=== PATIENT | male | born 1955 | race Caucasian/White ===

== ENCOUNTER → 2016-11-09 | Outpatient (CLI) | payer BC, OTHER ==
[2016-11-09 11:53] LABS: BASOPHILS # (AUTO) 0.05 10*3/UL; BASOPHILS % (AUTO) 0.6 % (0-1); EOSINOPHILS # (AUTO) 0.18 10*3/UL; EOSINOPHILS % (AUTO) 2.2 % (0-8); HEMATOCRIT 50.7 % (42.0-52.0); HEMOGLOBIN 16.7 g/dL (14.0-18.0); LYMPHOCYTES # (AUTO) 2.24 10*3/uL; MEAN CORPUSCULAR HEMOGLOBIN 29.3 PG (27-31); MEAN CORPUSCULAR HGB CONC 32.9 g/dL (33-37); MEAN CORPUSCULAR VOLUME 88.9 FL (80-90); MONOCYTES # (AUTO) 0.97 10*3/UL (0.3-0.8); MONOCYTES % (AUTO) 12.1 % (5-15); NEUTROPHILS # (AUTO) 4.57 10*3/UL
[2016-11-09 12:12] LABS: BLOOD UREA NITROGEN 22 mg/dL (7-22); CALCIUM 9.3 mg/dL (8.7-10.7); CHOL/HDL RATIO 3.67 RATIO (0-4.0); EST GLOMERULAR FILTRATION > 60 (>60 ml/min/1.73m(2)); HDL CHOLESTEROL 43 mg/dL (40-150); SERUM ALBUMIN 3.9 g/dL (3.5-4.8); SERUM CHOLESTEROL 158 mg/dL (120-200)
[2016-11-09 12:16] LABS: PLATELET MORPHOLOGY COMMENT NORMAL MORPHOLOGY (NORM); RBC MORPHOLOGY COMMENT NORMAL MORPHOLOGY (NORM); WBC MORPHOLOGY COMMENT NORMAL MORPHOLOGY (NORM)
== END ==
LOC: MOB LAB 10:54
PROVIDERS: ATTEND Family Medicine
DX: Z00.00 Encounter for general adult medical examination without abnormal findings (principal); Z12.5 Encounter for screening for malignant neoplasm of prostate
CPT/HCPCS: 36415; 80053; 80061; 82306; 84443; 85025; G0103

== ENCOUNTER 2018-09-06 05:55 | Inpatient (IN) ==
[2018-09-06] MEDS ORDERED: Tranexamic Acid 1,000 MG in Sodium Chloride 0.9% 100 ML IV SCH (06:00)
[2018-09-06] MEDS ORDERED: Ketorolac Inj 30 MG, Morphine Inj (Ortho Cocktail) 5 MG, BUPivacaine Inj 0.25% PF 150 MG SPLASH ONE ×3 (06:00)
[2018-09-06] MEDS ORDERED: Lactated Ringers 1,000 ML PRIMARY IV SCH (06:00)
[2018-09-06] MEDS ORDERED: BUPivacaine Liposome/PF (Exparel) Inj 20ml vial INFIL ONE ×2 (06:00→07:47)
[2018-09-06] MEDS ORDERED: Nasal Sanitizer POPSWAB ampule 3 AMP (Nozin) PREOP DOSE ENOS SCH (06:00)
[2018-09-06] MEDS ORDERED: ceFAZolin Inj 2gm (Premix) 2 GM/50 ML BAG IV ONE ×2 (06:00→06:03)
[2018-09-06] MEDS ORDERED: LIDOCAINE W/ SODIUM BICARB 0.5 ML SYR SUBD ONE (06:00)
[2018-09-06] MEDS ORDERED: LIDOCAINE W/ SODIUM BICARB 0.5 ML SYR ONE (06:04)
[2018-09-06] MEDS ORDERED: Lactated Ringers 1,000 ML PRIMARY IV ONE ×4 (06:04→10:33)
[2018-09-06 06:23] LABS: BILIRUBIN,URINE NEGATIVE (NEG); CLARITY,URINE CLEAR (CLEAR); COLOR,URINE YELLOW (Y); GLUCOSE, URINE (UA) NEGATIVE (NEG); OCCULT BLOOD,URINE NEGATIVE (NEG); PH,URINE 5.5 (5.0-8.5); PROTEIN,URINE NEGATIVE (NEG); UROBILINOGEN,URINE 0.2 EU/dL (0.2)
[2018-09-06 06:26] LABS: URINE SAMPLE TYPE CLEAN CATCH URINE
[2018-09-06] MEDS ORDERED: fentaNYL Inj 100 MCG/2 ML VIAL ONE ×2 (07:05→07:46)
[2018-09-06] MEDS ORDERED: MORPHINE SULFATE/PF 10 MG/10 ML AMPULE ONE (07:06)
[2018-09-06] MEDS ORDERED: MIDAZOLAM HCL 2 MG/2 ML VIAL ONE (07:06)
[2018-09-06] MEDS ORDERED: PROPOFOL 10 MG/1 ML (200 MG/20 ML) VIAL IV ONE (07:09)
[2018-09-06] MEDS ORDERED: Sodium Chloride 0.9% 500 ML ONE (07:19)
[2018-09-06] MEDS ORDERED: Sodium Chloride 0.9% 2,000 ML PRIMARY IV ONE (07:19)
[2018-09-06] MEDS ORDERED: LIDOCAINE HCL 2 % 10 ML JELLY URO-JECT TOPICAL ONE (07:23)
[2018-09-06] MEDS ORDERED: Gentamicin Inj 40 MG/ML VIAL ONE (07:25)
[2018-09-06] MEDS ORDERED: HEPARIN ONE (07:27)
[2018-09-06] MEDS ORDERED: ROCURONIUM 10 MG/1 ML - 5 ML VIAL IVP ONE (07:45)
[2018-09-06] MEDS ORDERED: LIDOCAINE HCL 2 % 10 ML JELLY URO-JECT TOPICAL PRN (08:11)
[2018-09-06] MEDS ORDERED: ePHEDrine Inj 50 MG/ML AMP ONE (08:19)
[2018-09-06] MEDS ORDERED: TRANEXAMIC ACID 1,000 MG / 10 ML VIAL ONE ×2 (08:40→10:29)
[2018-09-06] MEDS ORDERED: Sodium Chloride 0.9% vial 40 ML ONE (10:19)
--- NOTE | 2018-09-06 11:08 | ORTHO.OP ---
- - -: See Dictated Operative Report Procedure Codes - Hip Procedures Primary Hip Procedure: 00460 : JESSICA (caleb KUMAR assisted)
[2018-09-06] MEDS ORDERED: Sodium Chloride 0.9% 250 ML ONE (11:26)
--- NOTE | 2018-09-06 12:03 | DI ---
XR HIP COMPLETE MIN 2VW U/L,09/06/2018 7:58 AM: Clinical History: Left hip osteoarthritis. Previous Exam: July 15, 2018 Findings: AP view of the pelvis, crosstable lateral view and AP view of the left hip are obtained, and demonstr ate postsurgical changes consistent with a left total hip arthroplasty. There is a drain noted within the left hip. Overlying skin kristel are seen. There is a Boyd catheter noted with the tip in the urinary bladder. Impression: Status post left total hip arthroplasty without evidence of fracture.
[2018-09-06] MEDS ORDERED: ONDANSETRON 4 MG/2 ML VIAL IVP PRN (12:13)
[2018-09-06] MEDS ORDERED: HYDROmorphone 2 MG/1 ML IVP PRN (12:13)
[2018-09-06] MEDS ORDERED: Ondansetron ODT Tab 8 MG TAB PO PRN (12:13)
[2018-09-06] MEDS ORDERED: ACETAMINOPHEN 325 MG TABLET PO PRN (12:13)
[2018-09-06] MEDS ORDERED: Prochlorperazine Tab 10 MG TAB PO PRN (12:13)
[2018-09-06] MEDS ORDERED: BISACODYL 5 MG TABLET PO PRN (12:13)
[2018-09-06] MEDS ORDERED: HYDROcodone-APAP 7.5 MG-325 MG TABLET PO PRN (12:13)
[2018-09-06] MEDS ORDERED: diphenhydrAMINE 25 MG CAPSULE PO PRN (12:13)
[2018-09-06] MEDS ORDERED: BISACODYL 10 MG SUPPOSITORY RECTAL PRN (12:13)
[2018-09-06] MEDS ORDERED: MAG HYDROX/AL HYDROX/SIMETH 30 ML SUSP PO PRN (12:13)
[2018-09-06] MEDS ORDERED: CALCIUM CARBONATE 500 MG (TUMS) CHEWABLE TABLET PO PRN (12:13)
--- NOTE | 2018-09-06 12:31 | CRNA.PROCE ---
Central Neuraxis Block Placemt - - Safety Measures: Time Out Taken, Site Verified - - Type of Block: Subarachnoid Reason for Block: Surgical Moniters Used During Block: EKG, SPO2, NIBP Sedation Used - Enter Amount Used in Comment Field: Midazolam (mg): Yes (2), Fentanyl (mcg): Yes (100) Skin Prep Used: ChloroPrep Draped: Yes Skin Infiltration - Enter Amount Used in Comment Field: 1% Xylocaine (mL): Yes Introducer User: 23 Gauge Spinal Needle Used: 25 Micheal 80 mm Local Anesthetic - Enter Amount Used in Comment Field: 0.75 % Bupivacaine with Dextrose (ml): Yes (2) Additive Used - Enter Amount Used in Comment Field: Preservative Free Morphine (mg): Yes (0.15) Anesthesia Time - Other Weight: 94.801 kg Height: 5 ft 8 in Body Mass Index (BMI): 31.7
--- NOTE | 2018-09-06 12:32 | CRNA.PROGR ---
Anesthesia Recovery Phase I - Post Anesthesia Evaluation Patient's Condition on Arrival in Phase I: Stable Pain Level: 0
--- NOTE | 2018-09-06 12:32 | CRNA.PROGR ---
Anesthesia Time - Procedure/Recovery Time Start Date: 09/06/18 End Date: 09/06/18 Anesthesia : Time In: 07:55 Anesthesia : Time Out: 11:15 Anesthesia : Total Time: 200 - Block Time Start Date: 09/06/18 End Date: 09/06/18 PreOp Block : Time In: 07:20 PreOp Block : Time Out: 07:30 PreOp Block : Total Time: 10 - Total Anesthesia Time Total Anesthesia Time (minutes): 210 - Other Weight: 94.801 kg Height: 5 ft 8 in Body Mass Index (BMI): 31.7 Physical Status: P3 Anesthesia Type: General Anesthesia : ET
[2018-09-06] MEDS ORDERED: Influenza 18-19 Vaccine (6mo+) 60 MCG/0.5 ML SYRINGE IM ONE (13:07)
--- NOTE | 2018-09-06 14:31 | CONSULT ---
Consult Note - Consult Consult Date: 09/06/18 Reason for Consult: PostOp Consulation : Ortho Requesting Physician: Dr. 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 Banuelos today. The hospitalist service were consulted for management of medical issues. Patient was seen postoperatively he is denying symptoms. There is no nausea, no shortness of breath, no chest pain. There is no pain currently in the hip. He did say that his GERD caused the chronic inflammation of the vocal cords and he used to be on Dexilant a year ago he was switched to Prilosec and recently noticed a change in his voice again he is thinking of going back on the dexilant. Past Medical History Medical History: 1. History of GERD. 2. History of chronic inflammation of the vocal cords a result of reflux. 3. History of esophageal stricture that needed dilatation. 4. History of osteoarthritis. 5. History of colonic polyps Surgical History: 1. History of shoulder surgery Family History: Reviewed an Not Pertinent Past Social History: He used to smoke quit a few years back, he used to smoke 2 packs a day for probably 30 years, occasionally drink no drugs. Tobacco Use: Former Smoker In the Past 12 Months, Have Used or Abuse Any of the Following Substance: None Alcohol Use: Occasionally Review of Systems - Review of Systems All Systems: Reviewed & No Additional Complaints Except as Stated Medication / Allergies Home Medications: Home Medications Medication Instructions Recorded Confirmed Type omeprazole 40 mg capsule,delayed 1 cap PO DAILY #30 cap 01/10/18 09/05/18 Rx release diclofenac potassium 50 mg tablet 50 mg PO BID #60 tab 07/15/18 09/05/18 Rx hydrocodone 7.5 mg-acetaminophen See Rx Instructions PO QHS PRN #60 08/10/18 09/06/18 Rx 325 mg tablet tab Allergies/Adverse Reactions: Allergies Allergy/AdvReac Type Severity Reaction Status Date / Time No Known Allergies Allergy Verified 09/05/18 11:49 Exam - Vitals Vital Signs: Vital Signs Temperature 97.3 F Temperature Source Axillary Pulse Rate [Pulse Oximeter] 68 Pulse Rate 63 Respiratory Rate 16 Blood Pressure [Left Arm] 113/68 Blood Pressure 110/71 Pulse Ox 92 Oxygen Flow Rate 2 Oxygen Delivery Method Nasal Cannula Height 5 ft 8 in Weight 209 lb - General General Appearance: No Acute Distress - Head Head Exam: Normal Inspection - Eye Eye Exam: POSITIVE: Normal Appearance - ENT ENT Exam: POSITIVE: Normal Exam - Neck Neck Exam: Normal Inspection - Respiratory Respiratory Exam: POSITIVE: Clear to Auscultation - Bilaterally - Cardiovascular Cardiovascular Exam: POSITIVE: RRR - GI/Abdominal GI/Abdominal Exam: POSITIVE: Normal Bowel Sounds, Non Tender, Non Distended, Soft, No Organomegaly - Rectal Rectal Exam: POSITIVE: Deferred - External Exam: POSITIVE: Deferred Exam: POSITIVE: Deferred - Extremities Additional Extremities Exam Details: Dressing applied to the left hip. No edema noted in the legs. SCDs applied - Back Back Exam: POSITIVE: Normal Inspection - Neurological Neurological Exam: POSITIVE: Alert, Oriented x 3, CN II-XII Intact, No Facial Droop, Speech Intact / Clear - Psychiatric Psychiatric Exam: POSITIVE: Normal Affect - Integumentary Integumentary Exam: POSITIVE: Normal Color Assessment and Plan - Patient Problems (1) Status post left hip replacement Current Visit: Yes Status: Acute Comment: Management per Dr. Banuelos he did write for pain medication for DVT prophylaxis he put him on aspirin. Code(s): Z96.642 - Presence of left artificial hip joint (2) Gastroesophageal reflux disease Current Visit: No Status: None Comment: I did check with the pharmacy we don't have dexilant as the patient thought the Dexilant worked better for him in the past. I think we'll continue with the [facility] fot now and on discharge will write a prescription for dexilant.
[2018-09-06] MEDS: ceFAZolin Inj 2gm (Premix) 2 GM/50 ML BAG IV SCH (16:21)
[2018-09-06] MEDS: Lactated Ringers 1,000 ML PRIMARY IV SCH ×3 (17:54→21:21)
[2018-09-06] MEDS: DOCUSATE 100 MG CAPSULE PO SCH (20:02)
[2018-09-06] MEDS: HYDROcodone-APAP 7.5 MG-325 MG TABLET PO PRN (22:30)
[2018-09-07] MEDS: ceFAZolin Inj 2gm (Premix) 2 GM/50 ML BAG IV SCH (00:03)
[2018-09-07] MEDS: HYDROcodone-APAP 7.5 MG-325 MG TABLET PO PRN ×2 (04:01→09:17)
[2018-09-07 05:18] LABS: Hematocrit [HCT] 40.5 % (42.0-52.0); Hemoglobin [HGB] 12.8 g/dL (14.0-18.0); MEAN CORPUSCULAR HEMOGLOBIN 28.3 PG (27-31); MEAN CORPUSCULAR HGB CONC 31.6 g/dL (33-37); MEAN CORPUSCULAR VOLUME 89.4 FL (80-90); MEAN PLATELET VOLUME 10.8 FL (7.4-12.2); RED BLOOD COUNT 4.53 10^6/uL (4.70-6.10)
[2018-09-07 05:23] LABS: BLOOD UREA NITROGEN 21 mg/dL (7-22); BUN/CREATININE RATIO 23.33 (6-20)
[2018-09-07] MEDS: OMEPRAZOLE 40 MG CAPSULE PO SCH (07:52)
[2018-09-07] MEDS: Lactated Ringers 1,000 ML PRIMARY IV SCH (07:52)
--- NOTE | 2018-09-07 08:04 | ORTHO.PROG ---
Last Taken Vital Signs: Vital Signs - Last Taken Temperature 97.6 F 09/07/18 07:01 Pulse Rate 89 09/07/18 07:01 Respiratory Rate 20 09/07/18 07:01 Blood Pressure 117/80 09/07/18 07:01 Pulse Ox 95 09/07/18 07:01 Subjective: Patient feels well swelling and is ready to do therapy some mild soreness Objective: The Prevena dressing is in place the deep drain is in place over the last 10 hours has put out about 50 mL of fluid over the last couple hours reveals put are not offering mostly serous at this point drain was removed. Provine a dressing is working. Motor and sensory exam in the lower extremity is good. No calf, popliteal, adductor hiatus or thigh pain. No distal swelling or edema. Laboratory Results 09/07/18 09/07/18 04:25 04:25 WBC 13.11 H RBC 4.53 L Hgb 12.8 L Hct 40.5 L MCV 89.4 MCH 28.3 MCHC 31.6 L RDW Std Deviation 44.7 RDW Coeff of Brian 14.0 Plt Count 235 MPV 10.8 Sodium 135 Potassium 4.3 Chloride 100 Carbon Dioxide 31 Anion Gap 4 L BUN 21 Creatinine 0.9 Estimated GFR > 60 BUN/Creatinine Ratio 23.33 H Glucose 115 H Calculated Osmolality 283.0 Calcium 8.6 L Intake and Output - 8hrs 09/06/18 09/06/18 09/07/18 09/07/18 13:59 21:59 05:59 13:59 Intake: IV 3250 / 4773 459 / 4773 1064 / 4773 Intake Oral Amount 560 / 560 450 / 450 OrthoPat 100 / 100 Output: Output, Drainage Amount 195 / 245 50 / 245 Left Hip 195 / 245 50 / 245 Output, Urinary Catheter Amount 75 / 325 250 / 325 750 / 750 Output, Urine Amount 175 / 525 350 / 525 Output, Estimated Blood Loss 600 / 600 Amount Other: Percent Meal Consumed Dinner 100% Drains Orthopat Negative Pressure Drain left hip Hemovac Negative Pressure Drain Weight 94.801 kg Weight Measurement Method Standing Scale Vital Signs (24 hrs) 09/06/18 11:12 09/06/18 11:17 09/06/18 11:22 Temperature 97.2 F Pulse Rate 76 76 72 Pulse Rate [Pulse Oximeter] Respiratory Rate 18 16 16 Blood Pressure 118/77 86/72 93/65 Blood Pressure [Left Arm] Pulse Ox 99 96 96 09/06/18 11:32 09/06/18 11:42 09/06/18 11:52 Temperature 97.5 F 97.5 F Pulse Rate 66 71 62 Pulse Rate [Pulse Oximeter] Respiratory Rate 16 16 16 Blood Pressure 96/69 106/66 110/71 Blood Pressure [Left Arm] Pulse Ox 94 94 95 09/06/18 12:02 09/06/18 12:14 09/06/18 12:15 Temperature 97.6 F 97.3 F 97.3 F Pulse Rate 63 Pulse Rate [Pulse Oximeter] 76 64 Respiratory Rate 16 18 18 Blood Pressure 110/71 Blood Pressure [Left Arm] 114/70 114/70 Pulse Ox 97 95 95 09/06/18 12:40 09/06/18 13:45 09/06/18 17:00 Temperature 97.3 F 97.3 F 97.8 F Pulse Rate Pulse Rate [Pulse Oximeter] 69 68 79 Respiratory Rate 20 16 16 Blood Pressure Blood Pressure [Left Arm] 118/83 113/68 91/68 Pulse Ox 94 92 90 09/06/18 20:09 09/07/18 00:04 09/07/18 03:42 Temperature 97.8 F 97.2 F Pulse Rate Pulse Rate [Pulse Oximeter] 83 84 Respiratory Rate 20 18 Blood Pressure Blood Pressure [Left Arm] 102/66 106/77 Pulse Ox 95 91 91 09/07/18 04:17 09/07/18 07:00 09/07/18 07:01 Temperature 98.0 F 97.6 F Pulse Rate Pulse Rate [Pulse Oximeter] 92 89 89 Respiratory Rate 20 20 20 Blood Pressure Blood Pressure [Left Arm] 107/80 117/80 Pulse Ox 94 95 Assessment: Left total hip replacement doing well Plan: Physical and occupational therapy, pain control with oral and IV medication as needed. DVT prophylaxis with aspirin and pneumatic sequentials.
[2018-09-07] MEDS ORDERED: ASPIRIN EC 81 MG TABLET PO SCH (09:00)
[2018-09-07] MEDS: DOCUSATE 100 MG CAPSULE PO SCH ×2 (09:17→20:33)
[2018-09-07] MEDS: ASPIRIN 325 MG TABLET PO SCH ×2 (09:17→20:33)
[2018-09-07] MEDS: KETOROLAC 15 MG/1 ML VIAL IVP PRN ×2 (10:36→20:33)
--- NOTE | 2018-09-07 11:10 | PDOC(PROG) ---
Date of Service: 09/07/18 Time of Service: 11:10 Interval History: Subjective Patient had earlier some pain in the hip but seems to be controlled well with the pain medication that he received now. Objective : Data - Labs CBC and BMP: 09/07/18 04:25 09/07/18 04:25 Objective : Exam - General General Appearance: No Acute Distress, Cooperative Additional General Exam Details: Hoarse voice was noted - Head Head Exam: Normal Inspection - Eye Eye Exam: Normal Appearance - ENT ENT Exam: Normal Exam - Neck Neck Exam: Normal Inspection - Respiratory Respiratory Exam: Clear to Auscultation - Bilaterally - Cardiovascular Cardiovascular Exam: RRR - GI/Abdominal GI/Abdominal Exam: Normal Bowel Sounds, Non Tender, Non Distended, Soft, No Organomegaly - Rectal Rectal Exam: Deferred - External Exam: Deferred - Extremities Additional Extremities Exam Details: No edema in the legs - Back Back Exam: Normal Inspection - Neurological Neurological Exam: Alert, CN II-XII Intact, No Facial Droop, Speech Intact / Clear - Psychiatric Psychiatric Exam: Normal Affect Assessment and Plan - Patient Problems (1) Status post left hip replacement Current Visit: Yes Status: Acute Comment: Continue PT and OT. For DVT prophylaxis he is on aspirin. Code(s): Z96.642 - Presence of left artificial hip joint (2) Gastroesophageal reflux disease Current Visit: No Status: None Comment: I did speak with our pharmacy we don't have Dexilant which he used to take. So we continued with the Prilosec. I did send a prescription for him to [facility] so that he can pick it up once he is discharged.
--- NOTE | 2018-09-07 11:36 | PT.PROG ---
Progress Note Progress Note: S. Patient stated that he is feeling better this morning. O. Patient ambulated 70 feet in the galvez and back to his room. Patient was left with alarm and call light. A. Patient tolerated ambulation well, he agreed to perform stair training this afternoon. Patient would continue to benefit from skilled therapy at this time. P. Continue POC.
[2018-09-07] MEDS ORDERED: Ropivacaine 0.2% VIAL 0 ML ONE (12:21)
[2018-09-07] MEDS ORDERED: BUPIVACAINE 0.25% W/ EPI - 10 ML VIAL ONE (12:22)
[2018-09-07] MEDS ORDERED: EPINEPHrine Inj (1:1,000) 30mg/30ml vial ONE (12:22)
--- NOTE | 2018-09-07 14:39 | PT.PROG ---
Progress Note Progress Note: S. Patient stated that he is feeling good, he stated he is not having as much pain as he was this morning. O. Patient performed supine to standing transfer, then ambulated 150 feet around the nurses station then ascended and descended 5 stairs. Patient was left in his room with alarm and call light. A. Patient tolerated ambulation and stair training well, he was able to perform bed mobility and transfers independently, patient has met all goals at this time. P. Continue POC until discharge.
--- NOTE | 2018-09-07 15:19 | PTI REPORT ---
Thank you for the referral of Mark Darnell. He was seen on 09/06/18 for an inpatient evaluation status post left total hip arthroplasty. SUBJECTIVE: The patient is a 63-year-old male. The patient reports his biggest concern right now is modesty and he would like to get dressed as soon as possible. He states he would also like to get up right away. PAST MEDICAL HISTORY: Past medical history can be found in the patient's medical record. OBJECTIVE FINDINGS: Pain: The patient reports a pain level currently of 2/10 on the verbal analog scale (0=no pain, 10=worst pain); however, he is still under the influence of pain medication from surgery. Bed mobility: The patient is able to perform bed mobility from supine to edge of bed with min assist x1 for the left lower extremity. Transfers: The patient is able to perform five sit to stands with verbal and tactile cues for proper hand placement with the walker. Strength/Range of motion: Strength and range of motion were not formally assessed; however, the patient was able to perform bed mobility with min assist only for the left left lower extremity and is able to perform an active long arc quad and active ankle pump. Incision: The patient's incision was unable to be inspected due to post surgical bandage. Ambulation: The patient was issued a walker and instructed on weight-bearing as tolerated on the left lower extremity and use of the walker for two weeks. ASSESSMENT: Problem List: Pain in the left hip Decreased passive and active range of motion in the left hip Decreased strength in the left hip Short-Term Goals: To be met by discharge from inpatient: Patient will be able to transfer from bed to stand independently. Patient will be able to ambulate 100 feet with walker, weight-bearing as tolerated. Patient will be able to ascend and descend five stairs with walker, weight- bearing as tolerated. Long-Term Goals: To be met following discharge from inpatient: Patient will be seen by outpatient physical therapy. TREATMENT PLAN: Patient will be seen B.I.D during the week and one time per day over the weekend as an inpatient to address the above goals and objectives. INITIAL TREATMENT: Treatment today consisted of the initial evaluation followed by issuing the patient a standard walker. He was able to perform bed mobility from supine to edge of bed with min assist x1 for the left lower extremity as well as five sit to stand transfers and standing weight-shifting activities with weight-bearing as tolerated on the left lower extremity. He then was transferred back to supine in bed. MELISSA
[2018-09-07] MEDS: oxyCODONE/APAP 7.5/325 Tab 1 TAB TAB PO PRN (19:09)
[2018-09-08] MEDS: oxyCODONE/APAP 7.5/325 Tab 1 TAB TAB PO PRN ×4 (00:18→13:28)
[2018-09-08 04:56] LABS: Hematocrit [HCT] 41.2 % (42.0-52.0); Hemoglobin [HGB] 13.3 g/dL (14.0-18.0); MEAN CORPUSCULAR HEMOGLOBIN 28.9 PG (27-31); MEAN CORPUSCULAR HGB CONC 32.3 g/dL (33-37); MEAN CORPUSCULAR VOLUME 89.6 FL (80-90); RED BLOOD COUNT 4.6 10^6/uL (4.70-6.10)
[2018-09-08 05:16] LABS: BLOOD UREA NITROGEN 17 mg/dL (7-22); BUN/CREATININE RATIO 18.88 (6-20)
[2018-09-08 07:10] VITALS: TEMP 97.4
[2018-09-08] MEDS: OMEPRAZOLE 40 MG CAPSULE PO SCH (07:16)
--- NOTE | 2018-09-08 07:50 | ORTHO.PROG ---
Last Taken Vital Signs: Vital Signs - Last Taken Temperature 97.4 F 09/08/18 07:09 Pulse Rate 88 09/08/18 07:09 Respiratory Rate 17 09/08/18 07:09 Blood Pressure 117/84 09/08/18 07:09 Pulse Ox 91 09/08/18 07:09 Subjective: Patient doing well this morning states each day gets a little easier and less pain Objective: Left leg the dressing was removed where he had the deep drain Ryne has good suction on the prevena negative suction dressing. Leg is supple no significant hematoma or swelling. Motor and sensory exam is nonfocal. No calf, popliteal adductor hiatus or thigh pain. Laboratory Results 09/08/18 09/08/18 04:20 04:20 WBC 16.19 H RBC 4.60 L Hgb 13.3 L Hct 41.2 L MCV 89.6 MCH 28.9 MCHC 32.3 L RDW Std Deviation 44.8 RDW Coeff of Brian 14.0 Plt Count 262 MPV 11.0 Sodium 139 Potassium 3.9 Chloride 102 Carbon Dioxide 31 Anion Gap 6 BUN 17 Creatinine 0.9 Estimated GFR > 60 BUN/Creatinine Ratio 18.88 Glucose 105 Calculated Osmolality 289.0 Calcium 8.9 Vital Signs (24 hrs) 09/07/18 13:00 09/07/18 15:59 09/07/18 20:04 Temperature 99 F 97.9 F 98.1 F Pulse Rate [Apical] 89 Pulse Rate [Pulse Oximeter] 89 84 Respiratory Rate 16 12 20 Blood Pressure [Right Arm] 108/68 108/59 127/68 Pulse Ox 90 93 96 09/08/18 00:11 09/08/18 04:05 09/08/18 04:38 Temperature 98.0 F 97.3 F Pulse Rate [Apical] Pulse Rate [Pulse Oximeter] 79 97 Respiratory Rate 20 Blood Pressure [Right Arm] 124/74 125/87 Pulse Ox 95 97 93 09/08/18 04:41 09/08/18 07:09 Temperature 98.9 F 97.4 F Pulse Rate [Apical] Pulse Rate [Pulse Oximeter] 102 H 88 Respiratory Rate 20 17 Blood Pressure [Right Arm] 130/82 117/84 Pulse Ox 90 91 Assessment: Left total hip replacement doing well Plan: Patient will continue with physical therapy I think we could probably get him home this afternoon. I will see and right his a prescription for pain medication and therapy when I return from an outside clinic today. Patient will continue on aspirin 325 mg twice a day and hydrocodone 75/325 one to 2 every 4-6 hours as needed for pain. Patient will begin therapy at the beginning of the week.
[2018-09-08] MEDS: DOCUSATE 100 MG CAPSULE PO SCH (08:24)
[2018-09-08] MEDS: ASPIRIN 325 MG TABLET PO SCH (08:25)
--- NOTE | 2018-09-08 10:28 | DCSUMMARY ---
Hospitalization Summary Hospital Course: Final Discharge Diagnosis: Current Visit Problems Problem Status Onset Code Status post left hip replacement Acute Z96.642 Diagnostic Data, Laboratory Data, and Procedures of Signifigance: CBC and BMP 09/08/18 04:20 09/08/18 04:20 History and Physical pertinent to Admission: Past Medical History Medical History: 1. History of GERD. 2. History of chronic inflammation of the vocal cords a result of reflux. 3. History of esophageal stricture that needed dilatation. 4. History of osteoarthritis. 5. History of colonic polyps Surgical History: 1. History of shoulder surgery Family History: Reviewed an Not Pertinent Past Social History: He used to smoke quit a few years back, he used to smoke 2 packs a day for probably 30 years, occasionally drink no drugs. Course of Hospitalization: This very nice 63-year-old gentleman status post the elective total left hip replacement by Dr. Banuelos he is doing well postop hospitalist service was consulted for other medical issues which all have been stable. Most likely patient will be discharged home by Dr. Banuelos after his second and have visit with physical therapy this afternoon. Postop instructions and pain medications in the DVT prophylaxis and will be arranged by Dr. Banuelos as well as follow- up visit On the date of discharge, the patient was examined: Gen.: No acute distress, alert, nontoxic Heart: Regular rate and rhythm, no murmurs, clicks, gallops, or rubs Lungs: Clear to auscultation bilaterally, breathing is nonlabored Abdomen/GI: Normal tones on auscultation, soft, nontender, nondistended Musculoskeletal/extremities: No clubbing, cyanosis, or edema Vitals reviewed and are listed below Vital Signs (24 hrs) 09/07/18 13:00 09/07/18 15:59 09/07/18 20:04 Temperature 99 F 97.9 F 98.1 F Pulse Rate [Apical] 89 Pulse Rate [Pulse Oximeter] 89 84 Respiratory Rate 16 12 20 Blood Pressure [Right Arm] 108/68 108/59 127/68 Pulse Ox 90 93 96 09/08/18 00:11 09/08/18 04:05 09/08/18 04:38 Temperature 98.0 F 97.3 F Pulse Rate [Apical] Pulse Rate [Pulse Oximeter] 79 97 Respiratory Rate 20 Blood Pressure [Right Arm] 124/74 125/87 Pulse Ox 95 97 93 02/07/19 04:41 09/08/18 07:00 09/08/18 07:09 Temperature 98.9 F 97.4 F Pulse Rate [Apical] 89 Pulse Rate [Pulse Oximeter] 102 H 88 88 Respiratory Rate 20 17 17 Blood Pressure [Right Arm] 130/82 117/84 Pulse Ox 90 91 Assessment and Plan: 1. As per discharge assessments above 2. Disposition: Home after cleared by PT and OT 3. Condition on discharge, stable and improved. 4. Diet: regular diet 5. Activities: resume normal activities 6. Follow-Up: 1. PCP as needed 2. Dr. Banuelos as instructed by himself 7. Medications at the Time of Discharge: Home Medications 8. Time, care, counseling and coordination of care for this discharge is greater than 30 minutes. Home Medications Medication Instructions Recorded Confirmed Type omeprazole 40 mg capsule,delayed 1 cap PO DAILY #30 cap 01/10/18 09/05/18 Rx release diclofenac potassium 50 mg tablet 50 mg PO BID #60 tab 07/15/18 09/05/18 Rx Dexlansoprazole [Dexilant] 60 mg PO DAILY #30 cap.bp 09/07/18 Rx Aspirin 325 mg PO BID tab 09/08/18 Rx Hydrocodone/Acetaminophen See Rx Instructions PO QHS PRN #50 09/08/18 Rx [Hydrocodone-Acetamin 7.5-325] tab Exam - Vitals Vital Signs: Vital Signs Temperature 97.4 F Temperature Source Temporal Artery Scan Pulse Rate [Apical] 89 Pulse Rate [Pulse Oximeter] 88 Pulse Rate 63 Respiratory Rate 17 Blood Pressure [Right Arm] 117/84 Blood Pressure [Left Arm] 117/80 Blood Pressure 110/71 Pulse Ox 91 Oxygen Flow Rate 1 Oxygen Delivery Method Nasal Cannula Height 5 ft 8 in Weight 213 lb 9.6 oz
--- NOTE | 2018-09-08 10:41 | OT.PROG ---
Progress Note Progress Note: OT: S: pt stated that he wanted to go home soon and shower. O: tx consisted of review of equipment for dressing and completion of dressing task. pt completed bed mobility from supine to EOB independently, doffing and donning of socks with use of school year nanny and sock aide, donning of UE independently, review on hip precautions and dressing LE safely. A: pt was able to complete dressing tasks independently with use of equipment. P: continue POC
[2018-09-08 11:05] VITALS: BP 127/75; RESP 18; O2SAT 92
--- NOTE | 2018-09-08 11:10 | PT.PROG ---
Progress Note Progress Note: S. Patient stated that he is feeling good and feels ready to go home. O. Patient ambulated 150 feet around the nurses station then ascended and descended 8 stairs then ambulated back to his room where he was left in bed with alarm and call light. A. Patient tolerated ambulation and stair training well, he required 2 short rest breaks to increase his o2 sats, he required frequent verbal cues to breathe more during ambulation. P. He has met all goals at this time.
[2018-09-08] MEDS ORDERED: Influenza 18-19 Vaccine (6mo+) 60 MCG/0.5 ML SYRINGE IM ONE (11:54)
--- NOTE | 2018-09-08 11:58 | OTI REPORT ---
Thank you for the referral of Mark Darnell. He was seen on 09/07/18 for an occupational therapy inpatient evaluation status post left total hip arthroplasty. SUBJECTIVE: The patient is a 63-year-old male who had a left anterior total hip arthroplasty. The patient lives in his own home. He reports that once he is in his home it is on one level. He has removed his throw rugs. The patient was independent with ADLs and functional activities prior to admission. He did struggle a little bit with his socks secondary to the hip pain. He states his is going to go to the [facility] to try to get a high rise toilet seat as well as a shower chair. PAST MEDICAL HISTORY: Past medical history can be found in the patient's medical record. OBJECTIVE FINDINGS: General observations: The patient was educated in his hip precautions. Pain: Today the patient had pain with trying to bend over to dress self. Activities of daily living: The patient was able to reach approximately 8" past his knee. He was not able to don socks on his own. The patient was instructed on use of preservative filler machine operator and sock aide. The patient required min assist to complete both. The patient was able to stand and pull pants to waist level with contact guard assist. The patient was also issued a long handled shoe horn and a bath sponge. Transfers: The patient was able to transfer from sit to stand with contact guard assist. ASSESSMENT: The patient would benefit from a preservative filler machine operator, sock aide, bath sponge, and long handled shoe horn to increase independence at home. He states that his will be home for a couple of days, but after that he will have to complete most of his ADLs on his own. The patient will be picking up the shower chair and high rise toilet seat at the [facility]. TREATMENT PLAN: OT may see patient one more time if he ends up staying to review equipment. He did need min assist to use the sock aide today. INITIAL TREATMENT: Treatment today consisted of the initial evaluation followed by ADLs. MELISSA
== END 2018-09-08 15:10 | disposition home or self-care (01) | DRG 470 ==
LOC: OPS 05:55 → MED/SURG 12:04
PROVIDERS: ADMIT Orthopaedic Surgery; ATTEND Orthopaedic Surgery